=== PATIENT | male | born 1990 | race Caucasian/White ===

== ENCOUNTER 2016-06-25 09:43 | Emergency (ER) | payer SELFPAY ==
[2016-06-25 09:48] VITALS: BP 131/99
[2016-06-25] MEDS ORDERED: NAPROXEN 250 MG TABLET PO ONE (12:39)
--- NOTE | 2016-06-25 13:53 | ER Document Report ---
ED Extremity Problem, Lower - General Chief Complaint: Knee Pain Stated Complaint: KNEE PAIN Mode of Arrival: Ambulatory Information source: Patient Notes: 25 y/o M presents to the emergency department complaining of right knee pain. Patient reports has had intermittently persistent chronic right knee pain over the last several years however seems to have worsened over the past week after lifting heavy furniture while helping a family member move. Reports feels "grinding" painting the worse with movement and ambulation. Denies swelling, redness, bruising, weakness/numbness/tingling. TRAVEL OUTSIDE OF THE [place] IN LAST 30 DAYS: No - HPI Patient complains to provider of: Pain Location: Knee Occurred: Last week Onset/Duration: Persistent Quality of pain: Achy Severity: Moderate Pain Level: 3 Recent injury: Possibly Associated symptoms: Painful ambulation Exacerbated by: Movement, Walking Relieved by: Rest - Related Data Allergies/Adverse Reactions: Penicillins Allergy (Verified 06/25/16 09:46) Past Medical History - General Information source: Patient - Social History Smoking Status: Current Every Day Smoker Chew tobacco use (# tins/day): No Frequency of alcohol use: None Drug Abuse: None Lives with: Family Family History: Reviewed & Not Pertinent Patient has suicidal ideation: No Patient has homicidal ideation: No - Medical History Medical History: Negative Renal/ Medical History: Denies: Hx Peritoneal Dialysis Surgical Hx: Negative - Immunizations Hx Diphtheria, Pertussis, Tetanus Vaccination: Yes Review of Systems - Review of Systems Constitutional: No symptoms reported EENT: No symptoms reported Cardiovascular: No symptoms reported Respiratory: No symptoms reported Gastrointestinal: No symptoms reported Genitourinary: No symptoms reported Male Genitourinary: No symptoms reported Musculoskeletal: See HPI Skin: No symptoms reported Hematologic/Lymphatic: No symptoms reported Neurological/Psychological: No symptoms reported -: Yes All other systems reviewed and negative Physical Exam - Vital signs Vitals: Temp Pulse Resp BP Pulse Ox 97.5 F 79 16 131/99 H 97 06/25/16 09:47 06/25/16 09:47 06/25/16 09:47 06/25/16 09:47 06/25/16 09:47 Interpretation: Normal - General General appearance: Appears well, Alert In distress: None - HEENT Head: Normocephalic, Atraumatic Eyes: Normal Pupils: PERRL - Respiratory Respiratory status: No respiratory distress Chest status: Nontender Breath sounds: Normal Chest palpation: Normal - Cardiovascular Rhythm: Regular Heart sounds: Normal auscultation Murmur: No Pulses: Normal: Radial, Posterior tibial, Dorsalis pedis Normal capillary refill: Yes - Abdominal Inspection: Normal Distension: No distension Bowel sounds: Normal Tenderness: Nontender Organomegaly: No organomegaly - Back Back: Normal, Nontender - Extremities General upper extremity: Normal inspection, Nontender, Normal color, Normal ROM , Normal strength, Normal temperature. No: Tender, Edema General lower extremity: Normal inspection, Nontender, Normal color, Normal ROM , Normal strength, Normal temperature, Normal weight bearing. No: Tender, Edema , Leighann's sign Hip: Normal, Nontender Thigh: Normal, Nontender Knee: Tender - Tenderness with palpation to bilateral aspect of right knee. Full but painful active and passive range of motion. Distal neurovascular function intact with immediate capillary refill, palpable pedal pulses, and intact sensation. No swelling, bruising, or warmth., Pain with ROM. No: Deformity, Dislocation, Instability, Joint effusion, Unable to bear weight Calf: Normal, Nontender Ankle: Normal, Nontender Foot: Normal, Nontender - Neurological Neuro grossly intact: Yes Cognition: Normal Orientation: AAOx4 [place] Coma Scale Eye Opening: Spontaneous [place] Coma Scale Verbal: Oriented Prabha Coma Scale Motor: Obeys Commands Prabha Coma Scale Total: 15 Speech: Normal Motor strength normal: LUE, RUE, LLE, RLE Sensory: Normal - Psychological Associated symptoms: Normal affect, Normal mood - Skin Skin Temperature: Warm Skin Moisture: Dry Skin Color: Normal Course - Re-evaluation Re-evalutation: 06/25/16 13:58 Patient hemodynamically stable, in no distress, afebrile. X-ray of right knee unremarkable. No suggestion of emergent infectious, inflammatory, or vascular etiology symptoms at this time. Mega wrap placed per nursing staff. Patient appears stable for discharge and agrees with home care, follow-up, and ED return precautions. - Vital Signs Vital signs: Temp Pulse Resp BP Pulse Ox 97.5 F 79 16 131/99 H 97 06/25/16 09:47 06/25/16 09:47 06/25/16 09:47 06/25/16 09:47 06/25/16 09:47 - Diagnostic Test Radiology reviewed: Image reviewed, Reports reviewed Procedures - Immobilization Right Knee Time completed: 13:59 Pre-Proc Neuro Vasc Exam: Normal Immobilizer type: Mega wrap Performed by: RN, PCT Post-Proc Neuro Vasc Exam: Normal Alignment checked and good: Yes Discharge - Discharge Clinical Impression: Right knee pain Qualifiers: Chronicity: chronic Qualified Code(s): M25.561 - Pain in right knee Condition: Stable Disposition: HOME, SELF-CARE Instructions: Suspected Internal Knee Injury ([facility]), Knee Exercise Program ([facility]) , Mega Wrap ([facility]), Anti-Inflammatory Medication ([facility]), Warm Packs ([facility]), Ice Packs ([facility]) Additional Instructions: Follow-up with your primary care provider and orthopedics as discussed. Return to the emergency department for any worsening symptoms or concerns. Prescriptions: Naproxen [Naprosyn 375 Mg Tablet] 375 mg PO BIDP PRN #10 tablet PRN Reason: Forms: Elevated Blood Pressure, Return to School Referrals: RAFAEL HOLLIS MD [ACTIVE STAFF] - Follow up in 3-5 days
== END 2016-06-25 14:30 | disposition home or self-care (01) ==
LOC: ER 09:43
DX: M25.561 Pain in right knee (principal); G89.29 Other chronic pain; Z88.0 Allergy status to penicillin; F17.200 Nicotine dependence, unspecified, uncomplicated
CPT/HCPCS: 99283